=== PATIENT | female | born 1985 | race Caucasian/White ===

== ENCOUNTER 2018-01-16 13:40 | Inpatient (IN) | payer OTHER ==
[2018-01-16] MEDS ORDERED: AMPICILLIN SODIUM 2 GM VIAL ONE (14:16)
[2018-01-16 14:49] VITALS: BMI 34.4
[2018-01-16] MEDS ORDERED: OXYTOCIN 30 UNITS in 0.9% NS 30 UNIT/500 ML INFUS.BAG IVPB ONE (14:59)
--- NOTE | 2018-01-16 15:01 | HP ---
Past Medical History - Primary Care Physician PCP:: Romelia Judd - Admission Chief Complaint: 32yo P1 @ 37.5wks with LOF, clear at 8:30am today, mild contructions, no VB, +FM History of Present Illness: 1. GBS positive for Amicillin prophylaxis 2. GDMA2 on Insulin - 54 long acting pm an 6U short acting preprendial - EFW 7.5lb 3. 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 Tdap and Flu shot given intrapartum History Source: Patient, Significant Other, Medical Record Limitations to Obtaining History: No Limitations - Past Medical History ...: 2 ...Para: 1 ...Term: 1 (2013 uncomplicated - 7lb4oz) ...: 0 ...Spon : 0 ...Induced : 0 ...Multiple Gestation: 0 ... Weeks Gestation by Dates: 37.5 ...EDC by Sono: 02/01/18 Additional Medical History: h/o Kidney stone, told one kidney larger than other - Past Surgical History Past Surgical History: Yes: None Hx Myomectomy: No Hx Transabdominal Cerclage: No - Smoking History Smoking history: Never smoked Have you smoked in the past 12 months: No - Alcohol/Substance Use Hx Alcohol Use: No Home Medications - Allergies Allergies/Adverse Reactions: Allergies Allergy/AdvReac Type Severity Reaction Status Date / Time No Known Allergies Allergy Verified 01/16/18 14:18 - Home Medications Home Medications: Ambulatory Orders Insulin (Levemir) 54 units SQ HS 01/16/18 Insulin Regular [Novolin R Vial -] 6 units SQ BID 01/16/18 Vitamins (Sjr) - 1 tab PO DAILY 01/16/18 Review of Systems - Review of Systems Constitutional: reports: No Symptoms Eyes: reports: No Symptoms HENT: reports: No Symptoms Neck: reports: No Symptoms Cardiovascular: reports: No Symptoms Respiratory: reports: No Symptoms Gastrointestinal: reports: No Symptoms Genitourinary: reports: No Symptoms Breasts: reports: No Symptoms Reported Musculoskeletal: reports: No Symptoms Integumentary: reports: No Symptoms Neurological: reports: No Symptoms Endocrine: reports: No Symptoms Hematology/Lymphatic: reports: No Symptoms Psychiatric: reports: No Symptoms Physical Exam - Maternity Constitutional: Yes: Well Nourished, No Distress, Calm HENT: Yes: WNL, Atraumatic, Normocephalic Neck: Yes: WNL, Supple, Trachea Midline Cardiovascular: Yes: WNL, Regular Rate and Rhythm Lungs: Clear to auscultation Breast(s): Yes: WNL - Abdominal Exam/OB Fundal Height: 37 (EFW - 7.5lb) Number of Fetuses: Single Presentation: Vertex Contractions: Yes Regularity: Irregular Intensity: Mild Monitor Mode: External Heart Rate (range): 130 Heart Rate Location: Midline Category: I Accelerations: Uniform Decelerations: None - Vaginal Exam/OB Vaginal Bleediing: No Speculum Exam: No Dilatation (cm): 3-4 Effacement (%): 50% Amniotic Membrane Status: Ruptured Nitrazine Test: Positive Amniotic Fluid: Yes: Clear Presentation: Vertex/Position Station: -3 - Physical Exam Musculoskeletal: Yes: WNL Extremities: Yes: WNL Integumentary: Yes: WNL ...Motor Strength: WNL Psychiatric: Yes: WNL Assessment/Plan 32yo P1 @ 37.5wks with PROM admitted for labor augmentation. Fetus with Category I tracing and requires no intervention. Patient is not in labor and has favorable cervix. We discussed the treatment options including expectant management awaiting spontaneous labor, Pitocin for labor augmentation. We discussed the risks and benefits of each option. The patient prefers to proceed with pitocin and monitor labor progress. I explained the risks of failed induction, tacysystole, distress, shoulder dystocia, and/or maternal trauma, hemorrhage, need for section, etc. The pt verbalized her understanding and requested to proceed. Ampicillin for GBS positivity FS Q 2 hs, alternating fluids : FS<120Plasmolyte, FS>80 D5W Epidural for pain control
[2018-01-16] MEDS ORDERED: AMPICILLIN - 2 GM in SODIUM CHLORIDE 100 ML IVPB ONE (15:04)
[2018-01-16] MEDS: OXYTOCIN 30 UNITS in 0.9% NS 30 UNIT/500 ML INFUS.BAG IVPB SCH (15:10)
[2018-01-16] MEDS ORDERED: ELECTROLYTE-148 SOLN 1,000 ML IV SCH (15:15)
[2018-01-16 15:43] LABS: BASO % 0.2 % (0-2.0); EOS % 0.2 % (0-4.5); HEMATOCRIT 34.8 % (32.4-45.2); HEMOGLOBIN 11.6 GM/dL (10.7-15.3); MCH 28.1 pg (25.7-33.7); MCHC 33.5 g/dl (32.0-36.0); MEAN CELL VOLUME 83.9 fl (80-96); MEAN PLT VOLUME 8.9 fl (7.5-11.1); MONO % 5.7 % (3.8-10.2); NEUT % 77.9 % (42.8-82.8); PLATELET COUNT 236 K/MM3 (134-434); RBC 4.14 M/mm3 (3.60-5.2); RDW 13.8 % (11.6-15.6)
[2018-01-16 16:21] LABS: INR 0.92 (0.83-1.09); PROTHROMBIN TIME (PATIENT) 10.9 SEC (9.7-13.0)
[2018-01-16 16:23] LABS: ACTIVATED PTT 26.7 SECONDS (25.2-36.5)
[2018-01-16] MEDS: DEXTROSE 5%-LACTATED RINGERS 1,000 ML IV SCH (16:25)
[2018-01-16] MEDS ORDERED: FENTANYL/BUPIVACAINE/NS/PF - PCEA - 50 ML DISP.SYRIN EP ONE ×2 (16:31→21:29)
[2018-01-16] MEDS ORDERED: NALOXONE HCL 0.4 MG/ML VIAL IVPUSH PRN (16:36)
[2018-01-16] MEDS ORDERED: BUPIVACAINE HCL/PF 0.25% (2.5MG/ML) 10 ML VIAL ONE ×2 (16:37→22:00)
[2018-01-16] MEDS ORDERED: LIDO 2%/EPI 1:200000 PRESRVFRE (20 ML SDVIAL) ONE (16:38)
[2018-01-16 16:45] LABS: ANION GAP 11 MMOL/L (8-16); BLOOD UREA NITROGEN 20 mg/dL (7-18); CALCIUM 8.7 mg/dL (8.5-10.1); CHLORIDE 106 mmol/L (98-107); CO2 22 mmol/L (21-32); CREATININE 0.7 mg/dL (0.55-1.3); GLUCOSE,RANDOM 61 mg/dL (74-106); POTASSIUM 3.9 mmol/L (3.5-5.1); SODIUM 139 mmol/L (136-145)
[2018-01-16] MEDS: FENTANYL/BUPIVACAINE/NS/PF - PCEA - 50 ML DISP.SYRIN EP SCH (17:00)
[2018-01-16] MEDS: AMPICILLIN - 1 GM in SODIUM CHLORIDE 100 ML IVPB SCH ×2 (18:30→22:30)
[2018-01-16] MEDS ORDERED: AMPICILLIN SODIUM 1 GM VIAL ONE ×2 (18:33→22:46)
[2018-01-16] MEDS ORDERED: OXYTOCIN 20 UNITS in 0.9% NS 20 UNIT/1,000 ML INFUS.BAG IV ONE (23:14)
[2018-01-16] MEDS ORDERED: LIDOCAINE HCL 1% PRESERVATIVE FREE - 30ML VIAL ONE (23:14)
[2018-01-16] MEDS ORDERED: METHYLERGONOVINE MALEATE 0.2 MG/1 ML AMP IM PRN (23:28)
[2018-01-16] MEDS ORDERED: WITCH HAZEL 50% (TUCKS) 40 PAD/JAR PAD TP PRN (23:28)
[2018-01-16] MEDS ORDERED: BENZOCAINE 20% 57 GM BOTTLE TP PRN (23:28)
[2018-01-16] MEDS ORDERED: IBUPROFEN 600 MG TABLET (FP) PO PRN (23:28)
[2018-01-16] MEDS ORDERED: BISACODYL 10 MG SUPP.RECT RC PRN (23:28)
[2018-01-16] MEDS ORDERED: BENZOCAINE 28 GM HEMORRHOIDAL OINTMENT TP PRN (23:28)
--- NOTE | 2018-01-16 23:35 | PN ---
Delivery - Delivery Vaginal Delivery: No Problems Type of Anesthesia: Epidural Episiotomy/Laceration: None EBL (cc): 200 Delivery, Single - Stages of Labor Date 1st Stage Initiatied: 01/16/18 Time 1st Stage Initiated: 16:30 Date 2nd Stage Initiated: 01/16/18 Time 2nd Stage Initiated: 23:10 Date of Delivery: 01/16/18 Time of Delivery: 23:22 Date Placenta Delivered: 01/16/18 Time Placenta Delivered: 23:25 Placenta: Yes: Spontaneous - Condition of Infant Winder Operator/Sports Marketing Specialist Present: No Gender: Male Weight: 6 lb 14 oz Position: Left, OA - 1 Minute Total Score: 9 5 Minutes Total Score: 9 - [place] Feeding Plan Initial Plan: Exclusive throughout hospitalization Remarks - Remarks Remarks: Cord around the neck once, reduced without difficulty head and shoulders delivered without difficulty
[2018-01-16] MEDS ORDERED: OXYTOCIN 20 UNITS in 0.9% NS 20 UNIT/1,000 ML INFUS.BAG IV SCH (23:45)
[2018-01-17 00:30] LABS: ARTERIAL BLD GAS O2 SATURATION 16.3 % (90-98.9); ARTERIAL BLOOD GAS BASE EXCESS -4.6 meq/l (-2-2); ARTERIAL BLOOD GAS PCO2 69.2 mmHg (35-45)
[2018-01-17 00:38] LABS: ARTERIAL BLOOD GAS pH 7.2 (7.35-7.45)
[2018-01-17 00:39] LABS: ARTERIAL BLOOD GAS PO2 15.6 mmHg (80-100)
[2018-01-17 00:40] LABS: VENOUS PC02 45.3 mmHg (38-52); VENOUS PH 7.33 (7.32-7.42); VENOUS PO2 30.4 mmHg (28-48)
[2018-01-17] MEDS ORDERED: TUBERCULIN PPD 5 TU/0.1ML SYRINGE (IN PATIENT USE ONLY) ID ONE (01:30)
[2018-01-17] MEDS: AMPICILLIN - 1 GM in SODIUM CHLORIDE 100 ML IVPB SCH (03:14)
[2018-01-17] MEDS: ACETAMINOPHEN 325 MG TABLET (FP) PO PRN ×3 (06:20→21:53)
[2018-01-17 08:06] LABS: BASO % 0.2 % (0-2.0); EOS % 0.1 % (0-4.5); HEMATOCRIT 33.9 % (32.4-45.2); HEMOGLOBIN 11.3 GM/dL (10.7-15.3); LYMPH % 12.8 % (8-40); MCH 28.1 pg (25.7-33.7); MCHC 33.3 g/dl (32.0-36.0); MEAN CELL VOLUME 84.5 fl (80-96); MEAN PLT VOLUME 8.9 fl (7.5-11.1); MONO % 6.2 % (3.8-10.2); NEUT % 80.7 % (42.8-82.8); PLATELET COUNT 237 K/MM3 (134-434); RBC 4.01 M/mm3 (3.60-5.2); RDW 14.3 % (11.6-15.6); WHITE BLOOD COUNT 12.6 K/mm3 (4.0-10.0)
[2018-01-17] MEDS: FERROUS SO4 325 MG TABLET (FP) PO SCH ×2 (08:10→17:17)
[2018-01-17] MEDS: PRENATAL VITAMINS W/ FOLIC ACID TABLET (FP) PO SCH (09:17)
--- NOTE | 2018-01-17 12:52 | PN ---
Post Progress Note - Subjective Subjective: No complains Post Day: 1 Type of Delivery: Vital Signs: Vital Signs Temperature 98.7 F 01/17/18 07:45 Pulse Rate 89 01/17/18 07:45 Respiratory Rate 20 01/17/18 07:45 Blood Pressure 127/71 01/17/18 07:45 O2 Sat by Pulse Oximetry (%) 97 01/17/18 00:35 Breast Exam: Yes: Soft Uterus: Yes: Fundus Firm Abdomen/GI: Yes: Abdomen soft, Passing flatus, Tolerating PO Lochia: Yes: Rubra Lochia, amount: Small Extremities: Yes: Calves non-tender Perineum: Yes: Intact Activity: Ambulating - Labs Labs: CBC WBC 12.6 K/mm3 (4.0-10.0) H 01/17/18 07:49 RBC 4.01 M/mm3 (3.60-5.2) 01/17/18 07:49 Hgb 11.3 GM/dL (10.7-15.3) 01/17/18 07:49 Hct 33.9 % (32.4-45.2) 01/17/18 07:49 MCV 84.5 fl (80-96) 01/17/18 07:49 MCH 28.1 pg (25.7-33.7) 01/17/18 07:49 MCHC 33.3 g/dl (32.0-36.0) 01/17/18 07:49 RDW 14.3 % (11.6-15.6) 01/17/18 07:49 Plt Count 237 K/MM3 (134-434) 01/17/18 07:49 MPV 8.9 fl (7.5-11.1) 01/17/18 07:49 Absolute Neuts (auto) 10.2 K/mm3 (1.5-8.0) H 01/17/18 07:49 Neutrophils % 80.7 % (42.8-82.8) 01/17/18 07:49 Lymphocytes % 12.8 % (8-40) 01/17/18 07:49 Monocytes % 6.2 % (3.8-10.2) 01/17/18 07:49 Eosinophils % 0.1 % (0-4.5) 01/17/18 07:49 Basophils % 0.2 % (0-2.0) 01/17/18 07:49 Nucleated RBC % 0 % (0-0) 01/17/18 07:49 Assessment/Plan 32yo P2 s/p 1. Doing well 2. VSS, Afebrile, no evidence of acute blood loss 3. Rh positive status, no rhogam indicated. 4. Encourage ambulation 5. Continue oral pain medication as needed 6. Baby boy family undecided on circumcision, peds cleared the baby 7. She had GDMA2 on Insulin will follow with 2hr GTT 6weeks 8. Plan Discharge home tomorrow 9. Instructed on Pelvic rest for 6weeks 10. Return to office in 4-6 weeks
[2018-01-17 17:33] VITALS: TEMP 98
[2018-01-17] MEDS ORDERED: SENNOSIDES/DOCUSATE COMBO (SENNA PLUS) TABLET (UD) PO PRN (22:00)
[2018-01-18] MEDS: OXYTOCIN 30 UNITS in 0.9% NS 30 UNIT/500 ML INFUS.BAG IVPB SCH (05:35)
[2018-01-18] MEDS: ACETAMINOPHEN 325 MG TABLET (FP) PO PRN (05:35)
[2018-01-18] MEDS: FENTANYL/BUPIVACAINE/NS/PF - PCEA - 50 ML DISP.SYRIN EP SCH (05:37)
[2018-01-18] MEDS: DEXTROSE 5%-LACTATED RINGERS 1,000 ML IV SCH (05:37)
[2018-01-18] MEDS: FERROUS SO4 325 MG TABLET (FP) PO SCH (09:21)
[2018-01-18] MEDS: PRENATAL VITAMINS W/ FOLIC ACID TABLET (FP) PO SCH (09:21)
--- NOTE | 2018-01-18 09:29 | DS ---
Physical Exam-SOFTWARE SYSTEMS ANALYST Vital Signs: Vital Signs Temperature 98.0 F 01/17/18 21:50 Pulse Rate 87 01/17/18 21:50 Respiratory Rate 20 01/17/18 21:50 Blood Pressure 129/84 01/17/18 21:50 O2 Sat by Pulse Oximetry (%) 97 01/17/18 00:35 Constitutional: Yes: Well Nourished, No Distress, Calm Eyes: Yes: WNL, Conjunctiva Clear, EOM Intact HENT: Yes: WNL, Atraumatic, Normocephalic Neck: Yes: WNL, Supple, Trachea Midline Cardiovascular: Yes: WNL, Regular Rate and Rhythm Respiratory: Yes: WNL, Regular, CTA Bilaterally Gastrointestinal: Yes: WNL, Normal Bowel Sounds, Soft Renal/: Yes: WNL Pelvis: Yes: WNL External Genitalia: Yes: Normal Vaginal Exam: Yes: Normal Cervix: Yes: Normal Uterus: Yes: Normal ....Post : Yes: Uterus firm, Uterus non-tender Breast(s): Yes: WNL Musculoskeletal: Yes: WNL Edema: No Integumentary: Yes: WNL Neurological: Yes: WNL ...Motor Strength: WNL Psychiatric: Yes: WNL, Alert, Oriented Labs: CBC, BMP 01/17/18 07:49 01/16/18 15:00 Delivery - Delivery Vaginal Delivery: No Problems Type of Anesthesia: Epidural Episiotomy/Laceration: None EBL (cc): 200 Delivery, Single - Stages of Labor Date 1st Stage Initiatied: 01/16/18 Time 1st Stage Initiated: 16:30 Date 2nd Stage Initiated: 01/16/18 Time 2nd Stage Initiated: 23:10 Date of Delivery: 01/16/18 Time of Delivery: 23:22 Time Placenta Delivered: 23:25 Placenta: Yes: Spontaneous - Condition of Infant Yeast Maker/Casing Inspector Present: No Gender: Male Weight: 6 lb 14 oz Position: Left, OA Total Hours ROM (Hrs/Mins): 14Hrs/55Mins - 1 Minute Total Score: 9 5 Minutes Total Score: 9 - [place] Feeding Plan Initial Plan: Exclusive throughout hospitalization Discharge Summary Reason For Visit: LABOR PROM Procedures: Principal: Normal vavinal delivery Other Procedures: Penile cicumcision of the Hospital Course: Uncomplicated Condition: Good - Instructions Diet, Activity, Other Instructions: Physical activity Resume your normal everyday activity as tolerated no heavy lifting or exercise until seen by your surgeon. You may walk unlimited carla of and climb stairs. You may resume driving the car when you feel safe and comfortable behind the wheel. No sexual activity as instructed. Wound care If you have a bandage, leave it on, and keep dry for 48-72 hours. After that time discard the outer bandage. If they are tapes on the skin under the out of bandage leave them in place. They will peel off in the next 7 to 10 days. Do Not Peel them off. You may shower the day after surgery. If there are tapes present on the skin, you may shower over them. Diet There are no dietary restrictions. Eat healthy, high-fiber foods. Drink 6 to 8 glasses of liquid each day. This will assist in keeping your bowels are regular. Pain management You may take Tylenol or acetaminophen or Ibuprofen (for example, Motrin, Advil etc.) from my pain prescription medication is ordered should be taken as prescribed for moderate to severe pain. Call MD for any of the following: Severe pain not relieved by medication Fever of 101 or higher Excessive bleeding or drainage on dressing Inability to urinate Referrals: Karina Colvin MD [Staff Physician] - Disposition: HOME - Home Medications Comprehensive Discharge Medication List: Ambulatory Orders Insulin (Levemir) 54 units SQ HS 01/16/18 Insulin Regular [Novolin R Vial -] 6 units SQ BID 01/16/18 Vitamins (Sjr) - 1 tab PO DAILY 01/16/18
[2018-01-18 10:51] VITALS: BP 131/77; PULSE 84
== END 2018-01-18 12:40 | disposition home or self-care (01) | DRG 560 ==
LOC: JDEL 13:40 → JLDR 14:10 → J3W 01-17 01:54
PROVIDERS: ADMIT Obstetrics & Gynecology; ATTEND Obstetrics & Gynecology
PROC: 10E0XZZ Delivery of Products of Conception, External Approach (ICD-10-PCS; principal; 2018-01-16)
DX: O24.429 Gestational diabetes mellitus in childbirth, unspecified control (principal); Z3A.37 37 weeks gestation of pregnancy; Z22.330 Carrier of Group B streptococcus; O42.90 Premature rupture of membranes, unspecified as to length of time between rupture and onset of labor, unspecified weeks of gestation; Z37.0 Single live birth
CPT/HCPCS: 36415; 36600; 59409; 71046-TC-FY; 80048; 82803; 82962; 85025; 85610; 85730; 86593; 86850; 86900; 86901; 87389